=== PATIENT | female | born 1955 | race Caucasian/White ===

== ENCOUNTER 2019-10-23 10:21 | Inpatient (IN) ==
[2019-10-23] MEDS ORDERED: SODIUM CHLORIDE 0.9% 1,000 ML IV STA (10:34)
[2019-10-23 11:26] LABS: Apearance,Urine CLEAR (Clear); Bacteria,Urine Occasional /HPF (Few); Basophils % 0.4 % (0.0-0.8); Bilirubin,Urine Negative (Negative); Blood, Urine Negative (Negative); Eosinophils % 0.4 % (0.00-10.9); Glucose,Urine (UA) >=500 mg/dL (Negative); Hyaline Casts,Urine 5 /LPF (0-3); Immature Granulocytes % 0.6 %; Immature Granulocytes Absolute 0.03 #; Ketones,Urine Negative (Negative); Lymphocytes # 0.4 10*3/uL (1.4-4.0); Lymphocytes % 8.3 % (21.3-54.2); Mean Corpuscular HGB Conc 34.7 GM/DL (32-36); Mean Corpuscular Volume 103.4 FL (87-102); Mean Platelet Volume 12.1 FL (9.6-12.0); Monocytes % 5.7 % (1.7-12.7); Mucus,Urine Occasional /LPF (Occasional); Neutrophils % 84.6 % (38.7-73.9); Nitrite,Urine Negative (Negative); Protein,Urine Negative; RBC,Urine <1 /HPF (0-4); Red Blood Count 4.74 MC/CUMM (3.8-5.5); Red Cell Distribution Width 12.7 % (9.3-17.3); Urine Color Yellow (Yellow); Urine Specific Gravity 1.017 (1.001-1.035); WBC,Urine <1 /HPF (0-6); White Blood Count 5.1 T/CUMM (4-12)
[2019-10-23 11:28] LABS: Platelet Count 62 T/CUMM (130-400)
[2019-10-23 11:37] LABS: INR 1.1; PT Patient Result 11.4 SECS (9.6-12.2)
[2019-10-23 11:39] LABS: Barbiturates Screen,Urine Negative (Negative); Benzodiazepines Screen,Urine Negative (Negative); Cannabinoid Screen,Urine Negative (Negative); Opiate Screen,Urine Positive (Negative); Phencyclidine Screen,Urine Negative (Negative)
[2019-10-23 11:40] LABS: Alanine Aminotransferase 29 U/L (13-56); Albumin 3.5 G/DL (3.4-5.0); Alkaline Phosphatase 130 U/L (45-117); Aspartate Amino Transferase 48 U/L (0-37); Blood Urea Nitrogen 9 MG/DL (7-18); Calcium 9.5 MG/DL (8.5-10.1); Estimated Glom Filtration Rate 81 ML/MIN; Glucose 234 MG/DL (74-106); Osmolality,Calculated 279.8 MOS/KG (273-304)
[2019-10-23 11:42] LABS: Platelet Estimate Decreased
[2019-10-23] MEDS ORDERED: POTASSIUM CHLORIDE 20 MEQ TABLET PO STA (11:55)
[2019-10-23] MEDS ORDERED: POTASSIUM BICARB EFFERVESCENT 25 MEQ TABLET PO ONE (12:37)
[2019-10-23] MEDS ORDERED: GLUCAGON 1 MG VIAL IM PRN (16:38)
[2019-10-23] MEDS ORDERED: DEXTROSE 10% 25 GM/250 ML BAG IV PRN (16:38)
[2019-10-23] MEDS ORDERED: ONDANSETRON 4 MG/2 ML VIAL IV PRN (17:24)
[2019-10-23] MEDS ORDERED: POTASSIUM CHLORIDE 20 MEQ TABLET PO PRN (17:25)
[2019-10-23] MEDS: ENOXAPARIN 40 MG/0.4 ML SYRINGE SUBCUT SCH (17:46)
[2019-10-23] MEDS: SODIUM CHLORIDE 0.9% 1,000 ML IV SCH (17:46)
[2019-10-23] MEDS: INSULIN LISPRO 100 UNIT/ML SUBCUT SCH (21:59)
[2019-10-24] MEDS: ACETAMINOPHEN/CODEINE 300-30 MG TABLET PO SCH ×4 (00:39→20:35)
[2019-10-24] MEDS: ALLOPURINOL 100 MG TABLET PO SCH ×2 (00:39→09:02)
[2019-10-24] MEDS: clonazePAM 0.5 MG TABLET PO SCH ×3 (00:39→20:35)
[2019-10-24] MEDS: SODIUM CHLORIDE 0.9% 1,000 ML IV SCH ×3 (03:33→20:37)
[2019-10-24] MEDS: ACETAMINOPHEN 325 MG TABLET PO PRN ×3 (05:00→22:56)
[2019-10-24 06:09] LABS: Albumin 2.9 G/DL (3.4-5.0); Bilirubin,Total 1.2 MG/DL (0.2-1.0); Calcium 8.7 MG/DL (8.5-10.1); Risk Ratio 4.59; Thyroid Stimulating Hormone 0.697 uIU/ml (0.358-3.74); Total Protein 7.4 G/DL (6.4-8.3); VLDL CHOLESTEROL 25.4 MG/DL
[2019-10-24 06:23] LABS: Basophils % 0.3 % (0.0-0.8); Eosinophils % 0.7 % (0.00-10.9); Hematocrit 36.4 VOL% (35.7-47.0); Immature Granulocytes % 0.3 %; Immature Granulocytes Absolute 0.01 #; Lymphocytes # 0.9 10*3/uL (1.4-4.0); Lymphocytes % 29.9 % (21.3-54.2); Mean Corpuscular HGB Conc 34.9 GM/DL (32-36); Mean Corpuscular Volume 102.2 FL (87-102); Mean Platelet Volume 11.4 FL (9.6-12.0); Monocytes % 9.9 % (1.7-12.7); Neutrophils % 58.9 % (38.7-73.9); Red Cell Distribution Width 12.7 % (9.3-17.3)
[2019-10-24 06:26] LABS: White Blood Count 2.9 T/CUMM (4-12)
[2019-10-24 06:27] LABS: Hemoglobin 12.7 GM/DL (12.0-16.0); Platelet Count 72 T/CUMM (130-400); Red Blood Count 3.56 MC/CUMM (3.8-5.5)
[2019-10-24 06:47] LABS: Hypochromasia 1+; Ovalocytes Slight; Platelet Estimate Decreased
[2019-10-24] MEDS: NICOTINE 21 MG/24 HR PATCH TRANSDERM PRN (09:02)
[2019-10-24] MEDS: PANTOPRAZOLE 40 MG TABLET PO SCH (09:02)
[2019-10-24] MEDS: INSULIN LISPRO 100 UNIT/ML SUBCUT SCH ×4 (09:19→20:36)
[2019-10-24] MEDS ORDERED: MAGNESIUM SULF RIDER 2 GM in PREMIX 1 EACH IV ONE (10:00)
[2019-10-24] MEDS: LACTULOSE 20 GM/30 ML UDCUP PO SCH ×4 (10:57→22:53)
[2019-10-24] MEDS: diphenhydrAMINE CAP 25 MG CAPSULE PO PRN ×2 (16:55→22:56)
[2019-10-24] MEDS: ENOXAPARIN 40 MG/0.4 ML SYRINGE SUBCUT SCH (20:37)
[2019-10-24] MEDS ORDERED: ALBUTEROL/IPRATROPIUM 3 ML NEB RESP TX PRN (23:39)
[2019-10-25] MEDS ORDERED: IBUPROFEN 600 MG TABLET PO PRN (01:06)
[2019-10-25 06:21] LABS: Basophils % 1.4 % (0.0-0.8); Eosinophils % 0.9 % (0.00-10.9); Hematocrit 37.4 VOL% (35.7-47.0); Lymphocytes # 0.4 10*3/uL (1.4-4.0); Lymphocytes % 18.9 % (21.3-54.2); Mean Corpuscular HGB Conc 34.8 GM/DL (32-36); Mean Corpuscular Volume 101.9 FL (87-102); Mean Platelet Volume 11.8 FL (9.6-12.0); Monocytes % 13.7 % (1.7-12.7); Neutrophils % 65.1 % (38.7-73.9); Red Blood Count 3.67 MC/CUMM (3.8-5.5); Red Cell Distribution Width 12.8 % (9.3-17.3); White Blood Count 2.1 T/CUMM (4-12)
[2019-10-25 06:25] LABS: Platelet Count 68 T/CUMM (130-400)
[2019-10-25] MEDS: LACTULOSE 20 GM/30 ML UDCUP PO SCH ×2 (06:33→15:04)
[2019-10-25] MEDS: ACETAMINOPHEN 325 MG TABLET PO PRN (06:45)
[2019-10-25 06:49] LABS: Platelet Estimate Decreased
[2019-10-25 06:52] LABS: Albumin 3.2 G/DL (3.4-5.0); Bilirubin,Total 1.1 MG/DL (0.2-1.0); Calcium 8.8 MG/DL (8.5-10.1); Osmolality,Calculated 275.8 MOS/KG (273-304)
[2019-10-25] MEDS: diphenhydrAMINE CAP 25 MG CAPSULE PO PRN (08:43)
[2019-10-25] MEDS: ACETAMINOPHEN/CODEINE 300-30 MG TABLET PO SCH ×2 (08:43→15:04)
[2019-10-25] MEDS: PANTOPRAZOLE 40 MG TABLET PO SCH (08:43)
[2019-10-25] MEDS: NICOTINE 21 MG/24 HR PATCH TRANSDERM PRN (08:44)
[2019-10-25] MEDS: ALLOPURINOL 100 MG TABLET PO SCH (08:44)
[2019-10-25] MEDS: clonazePAM 0.5 MG TABLET PO SCH (08:44)
[2019-10-25] MEDS: INSULIN LISPRO 100 UNIT/ML SUBCUT SCH ×2 (08:44→12:09)
[2019-10-25] MEDS ORDERED: diphenhydrAMINE CAP 25 MG CAPSULE PO PRN (11:39)
[2019-10-25 12:39] VITALS: BP 143/79
[2019-10-25 20:41] LABS: % CD4 (T Cells) 20 % (32-64); % CD8 (T Cells) 43 % (8-40); 4/8 Ratio 0.5 (>=0.9)
== END 2019-10-25 15:06 | DRG 442 ==
LOC: EDBD → EDUNIT# → N.EDINP 10:21 → N.ED 10:21 → N.EDINP 15:04 → N.5E 15:27
PROVIDERS: ADMIT Internal Medicine; ATTEND Internal Medicine

== ENCOUNTER 2019-12-12 11:48 | Observation (INO) ==
[2019-12-12] MEDS ORDERED: ONDANSETRON 4 MG/2 ML VIAL IV STA (12:20)
[2019-12-12] MEDS ORDERED: SODIUM CHLORIDE 0.9% 1,000 ML IV STA (12:20)
[2019-12-12] MEDS ORDERED: DILTIAZEM 50 MG/10 ML VIAL IV STA (12:38)
[2019-12-12] MEDS ORDERED: dilTIAZem Drip 125 MG/125 ML PREMIX IV SCH (13:00)
[2019-12-12 13:19] LABS: Basophils % 0.7 % (0.0-0.8); Eosinophils % 0.3 % (0.00-10.9); Hematocrit 43.4 VOL% (35.7-47.0); Hemoglobin 14.8 GM/DL (12.0-16.0); Immature Granulocytes % 0.3 %; Immature Granulocytes Absolute 0.01 #; Lymphocytes # 0.6 10*3/uL (1.4-4.0); Lymphocytes % 18.3 % (21.3-54.2); Mean Corpuscular HGB Conc 34.1 GM/DL (32-36); Mean Corpuscular Volume 102.6 FL (87-102); Mean Platelet Volume 11.9 FL (9.6-12.0); Monocytes % 7.7 % (1.7-12.7); Neutrophils % 72.7 % (38.7-73.9); Platelet Count 80 T/CUMM (130-400); Red Blood Count 4.23 MC/CUMM (3.8-5.5); Red Cell Distribution Width 13.2 % (9.3-17.3)
[2019-12-12 13:24] LABS: Apearance,Urine CLEAR (Clear); Bilirubin,Urine Negative (Negative); Blood, Urine Negative (Negative); Glucose,Urine (UA) 150 mg/dL (Negative); Hyaline Casts,Urine 1 /LPF (0-3); Ketones,Urine Negative (Negative); Mucus,Urine Occasional /LPF (Occasional); Nitrite,Urine Negative (Negative); Protein,Urine Negative; RBC,Urine 2 /HPF (0-4); Urine Color Yellow (Yellow); Urine Specific Gravity 1.011 (1.001-1.035); WBC,Urine 1 /HPF (0-6)
[2019-12-12 13:30] LABS: INR 1.1; PT Patient Result 11.8 SECS (9.6-12.2); Partial Thromboplastin Time 28.3 SECS (20.8-36.0)
[2019-12-12 13:48] LABS: Albumin 3.3 G/DL (3.4-5.0); Bilirubin,Total 0.7 MG/DL (0.2-1.0); Calcium 9.1 MG/DL (8.5-10.1); Osmolality,Calculated 276.1 MOS/KG (273-304)
[2019-12-12] MEDS ORDERED: ACETAMINOPHEN 325 MG TABLET PO PRN (15:29)
[2019-12-12] MEDS ORDERED: ONDANSETRON 4 MG/2 ML VIAL IV PRN (15:29)
[2019-12-12] MEDS ORDERED: PROMETHAZINE 25 MG/1 ML VIAL IM PRN (15:29)
[2019-12-12] MEDS ORDERED: PHENYLEPH/MINERAL OIL/PETROLAT 57 GM TUBE TOP PRN (15:51)
[2019-12-12] MEDS ORDERED: IBUPROFEN 800 MG TABLET PO PRN (15:51)
[2019-12-12] MEDS ORDERED: ALBUTEROL 2.5 MG/3 ML NEB RESP TX PRN (15:51)
[2019-12-12] MEDS ORDERED: ONDANSETRON 4 MG TABLET PO PRN (15:51)
[2019-12-12] MEDS ORDERED: traMADol 50 MG TABLET PO PRN (15:51)
[2019-12-12] MEDS ORDERED: DEXTROSE 50% 25 GM/50 ML VIAL IV PRN (15:52)
[2019-12-12] MEDS ORDERED: GLUCAGON 1 MG VIAL IM PRN (15:52)
[2019-12-12] MEDS ORDERED: METOPROLOL TARTRATE 50 MG TABLET PO STA (15:53)
[2019-12-12] MEDS ORDERED: INSULIN GLARGINE 100 UNIT/ML SUBCUT SCH (16:00)
[2019-12-12] MEDS ORDERED: DILTIAZEM 60 MG TABLET PO SCH (17:00)
[2019-12-12] MEDS ORDERED: POTASSIUM CHLORIDE 20 MEQ TABLET PO ONE (18:00)
[2019-12-12] MEDS: VENLAFAXINE 37.5 MG TABLET PO SCH (18:29)
[2019-12-12] MEDS: APIXABAN 5 MG TABLET PO SCH ×2 (18:29→21:46)
[2019-12-12] MEDS: DILTIAZEM 30 MG TABLET PO SCH ×2 (18:29→22:39)
[2019-12-12] MEDS: PANTOPRAZOLE 40 MG TABLET PO SCH (18:29)
[2019-12-12] MEDS: INSULIN LISPRO 100 UNIT/ML SUBCUT SCH (18:30)
[2019-12-12] MEDS: clonazePAM 0.5 MG TABLET PO SCH (18:30)
[2019-12-12] MEDS: INSULIN REGULAR 100 UNIT/ML SUBCUT SCH ×2 (18:33→21:43)
[2019-12-12] MEDS: SODIUM CHLORIDE 0.9% 1,000 ML IV SCH (18:38)
[2019-12-12 19:50] LABS: Macrocytosis 2+; Platelet Estimate Decreased
[2019-12-12] MEDS ORDERED: ABACAVIR DOLUTEGRAVIR LAMIVUD PO SCH (21:00)
[2019-12-12] MEDS ORDERED: CETIRIZINE 10 MG TABLET PO SCH (21:00)
[2019-12-12] MEDS ORDERED: GABAPENTIN 300 MG CAPSULE PO SCH (21:00)
[2019-12-12] MEDS: AMOXICILLIN/CLAV 875 MG TABLET PO SCH (21:45)
[2019-12-12] MEDS: METOPROLOL TARTRATE 50 MG TABLET PO SCH (21:46)
[2019-12-12] MEDS: allopurinoL 100 MG TABLET PO SCH (21:46)
[2019-12-12] MEDS ORDERED: ACETAMINOPHEN/CODEINE 300-30 MG TABLET PO SCH (22:00)
[2019-12-13 05:00] LABS: Basophils % 0.7 % (0.0-0.8); Eosinophils % 1.4 % (0.00-10.9); Hematocrit 35.6 VOL% (35.7-47.0); Immature Granulocytes % 0.4 %; Immature Granulocytes Absolute 0.01 #; Lymphocytes # 0.7 10*3/uL (1.4-4.0); Lymphocytes % 26.3 % (21.3-54.2); Mean Corpuscular HGB Conc 33.7 GM/DL (32-36); Mean Corpuscular Volume 103.5 FL (87-102); Mean Platelet Volume 12.5 FL (9.6-12.0); Monocytes % 8.6 % (1.7-12.7); Neutrophils % 62.6 % (38.7-73.9); Platelet Count 79 T/CUMM (130-400); Red Blood Count 3.44 MC/CUMM (3.8-5.5); Red Cell Distribution Width 13.3 % (9.3-17.3); White Blood Count 2.8 T/CUMM (4-12)
[2019-12-13 05:29] LABS: Albumin 2.7 G/DL (3.4-5.0); Bilirubin,Total 0.7 MG/DL (0.2-1.0); Calcium 8.3 MG/DL (8.5-10.1); Osmolality,Calculated 283.8 MOS/KG (273-304); Risk Ratio 3.64; Total Protein 7.4 G/DL (6.4-8.3); VLDL CHOLESTEROL 22.8 MG/DL
[2019-12-13 05:43] LABS: Hypochromasia Slight; Macrocytosis 1+
[2019-12-13 05:44] LABS: Platelet Estimate Decreased
[2019-12-13] MEDS: clonazePAM 0.5 MG TABLET PO SCH (08:42)
[2019-12-13] MEDS: PANTOPRAZOLE 40 MG TABLET PO SCH (08:43)
[2019-12-13] MEDS: VENLAFAXINE 37.5 MG TABLET PO SCH (08:43)
[2019-12-13] MEDS: METOPROLOL TARTRATE 50 MG TABLET PO SCH (08:43)
[2019-12-13] MEDS: AMOXICILLIN/CLAV 875 MG TABLET PO SCH (08:43)
[2019-12-13] MEDS: allopurinoL 100 MG TABLET PO SCH (08:43)
[2019-12-13] MEDS: APIXABAN 5 MG TABLET PO SCH ×2 (08:44→11:52)
[2019-12-13] MEDS: INSULIN LISPRO 100 UNIT/ML SUBCUT SCH ×3 (08:44→16:59)
[2019-12-13] MEDS: INSULIN REGULAR 100 UNIT/ML SUBCUT SCH ×3 (08:48→16:59)
[2019-12-13] MEDS: SODIUM CHLORIDE 0.9% 1,000 ML IV SCH ×3 (08:52→16:58)
[2019-12-13] MEDS ORDERED: MULTIVITAMIN (CENTRUM) TABLET PO SCH (09:00)
[2019-12-13] MEDS ORDERED: SULFAMETHOX/TRIMETHOPRIM 400-80 MG TABLET PO SCH (09:00)
[2019-12-13] MEDS ORDERED: POTASSIUM CHLORIDE 20 MEQ TABLET PO SCH (09:00)
[2019-12-13] MEDS ORDERED: hydroCHLOROthiazide 25 MG TABLET PO SCH (09:00)
[2019-12-13] MEDS ORDERED: DILTIAZEM 60 MG TABLET PO SCH (09:00)
[2019-12-13] MEDS ORDERED: LACTULOSE 20 GM/30 ML UDCUP PO SCH (09:00)
[2019-12-13] MEDS ORDERED: CHOLECALCIFEROL 1,000 UNIT TABLET PO SCH (09:00)
[2019-12-13] MEDS ORDERED: INSULIN GLARGINE 100 UNIT/ML SUBCUT SCH (09:00)
[2019-12-13] MEDS ORDERED: DILTIAZEM CD 120 MG CAPSULE PO SCH (09:00)
[2019-12-13] MEDS ORDERED: FLUCONAZOLE 200 MG TABLET PO ONE (10:20)
[2019-12-13 12:19] VITALS: BP 115/68
[2019-12-13] MEDS ORDERED: NEBIVOLOL 5 MG TABLET PO SCH (21:00)
== END 2019-12-13 17:15 | disposition home or self-care (01) ==
LOC: EDUNIT# → EDBD → N.ED 11:48 → N.EDINP 11:48 → N.TELES 17:20
PROVIDERS: ADMIT Internal Medicine; ATTEND Internal Medicine

== ENCOUNTER 2020-03-20 18:04 | Inpatient (IN) ==
[2020-03-20] MEDS ORDERED: PANTOPRAZOLE 40 MG VIAL IV STA ×3 (18:32→21:13)
[2020-03-20] MEDS ORDERED: SODIUM CHLORIDE 0.9% 500 ML IV STA ×3 (18:32→21:13)
[2020-03-20 18:56] LABS: Eosinophils % 0.8 % (0.00-10.9); Immature Granulocytes % 0.3 %; Immature Granulocytes Absolute 0.01 #; Lymphocytes # 0.8 10*3/uL (1.4-4.0); Mean Corpuscular HGB Conc 29.5 GM/DL (32-36); Mean Corpuscular Volume 88.6 FL (87-102); Mean Platelet Volume 13.5 FL (9.6-12.0); NRBC # 0.03 10*3/uL; Neutrophils % 63.9 % (38.7-73.9); Platelet Count 73 T/CUMM (130-400); Red Blood Count 1.49 MC/CUMM (3.8-5.5); Red Cell Distribution Width 18.9 % (9.3-17.3); White Blood Count 3.7 T/CUMM (4-12)
[2020-03-20 19:03] LABS: Hematocrit 13.2 VOL% (35.7-47.0); Hemoglobin 3.9 GM/DL (12.0-16.0)
[2020-03-20 19:14] LABS: Apearance,Urine Slightly Hazy (Clear); Bacteria,Urine Few /HPF (Few); Bilirubin,Urine Negative (Negative); Blood, Urine Negative (Negative); Glucose,Urine (UA) Negative (Negative); Ketones,Urine Negative (Negative); Nitrite,Urine Negative (Negative); Protein,Urine Negative; RBC,Urine <1 /HPF (0-4); Urine Color Yellow (Yellow); Urine Specific Gravity 1.014 (1.001-1.035); WBC,Urine 1 /HPF (0-6)
[2020-03-20 19:22] LABS: Alanine Aminotransferase 23 U/L (13-56); Albumin 2.8 G/DL (3.4-5.0); Alkaline Phosphatase 88 U/L (45-117); Aspartate Amino Transferase 38 U/L (0-37); Blood Urea Nitrogen 30 MG/DL (7-18); Calcium 8.9 MG/DL (8.5-10.1); Estimated Glom Filtration Rate 51 ML/MIN; Ferritin 8.4 ng/ml (8-252); Glucose 103 MG/DL (74-106); Osmolality,Calculated 265.8 MOS/KG (273-304)
[2020-03-20 19:22] LABS: Barbiturates Screen,Urine Negative (Negative); Benzodiazepines Screen,Urine Negative (Negative); Cannabinoid Screen,Urine Negative (Negative); Opiate Screen,Urine Positive (Negative); Phencyclidine Screen,Urine Negative (Negative)
[2020-03-20 19:24] LABS: Troponin I 0.128 NG/ML (0.00-0.045)
[2020-03-20 19:27] LABS: INR 1.3; PT Patient Result 14.2 SECS (9.8-11.9)
[2020-03-20] MEDS ORDERED: SODIUM CHLORIDE 0.9% 1,000 ML IV PRN (20:36)
[2020-03-20] MEDS ORDERED: cefTRIAXone 1,000 MG in SODIUM CHLORIDE 0.9% 100 ML IV STA (21:13)
[2020-03-20] MEDS ORDERED: OCTREOTIDE 100 MCG/ML SYRINGE IV STA (21:13)
[2020-03-20] MEDS ORDERED: PROMETHAZINE 25 MG/1 ML VIAL IM PRN (21:13)
[2020-03-20] MEDS ORDERED: ONDANSETRON 4 MG/2 ML VIAL IV PRN (21:13)
[2020-03-20] MEDS ORDERED: GLUCAGON 1 MG VIAL IM PRN (21:13)
[2020-03-20] MEDS ORDERED: DEXTROSE 10% 250 ML BAG IV PRN (21:18)
[2020-03-20] MEDS ORDERED: PANTOPRAZOLE 40 MG VIAL IV SCH (21:30)
[2020-03-20] MEDS: LACTATED RINGERS 1,000 ML IV SCH (22:59)
[2020-03-20] MEDS: OCTREOTIDE 500 MCG in SODIUM CHLORIDE 0.9% 100 ML IV SCH (23:14)
[2020-03-20] MEDS: ALBUTEROL 2.5 MG/3 ML NEB RESP TX PRN (23:20)
[2020-03-20] MEDS: POTASSIUM CHLORIDE RIDER 10 MEQ in PREMIX 1 EACH IV SCH (23:31)
[2020-03-20] MEDS: INSULIN REGULAR 100 UNIT/ML SUBCUT SCH (23:41)
[2020-03-21] MEDS ORDERED: POTASSIUM CHLORIDE IV ONE
[2020-03-21] MEDS ORDERED: SODIUM CHLORIDE 0.9% IV ONE
[2020-03-21] MEDS ORDERED: FUROSEMIDE 20 MG/2 ML VIAL IV ONE (01:09)
[2020-03-21] MEDS: INSULIN REGULAR 100 UNIT/ML SUBCUT SCH ×4 (06:05→23:50)
[2020-03-21] MEDS: LACTATED RINGERS 1,000 ML IV SCH ×3 (06:05→21:32)
[2020-03-21 09:14] LABS: INR 1.3; PT Patient Result 13.3 SECS (9.8-11.9); Partial Thromboplastin Time 27.5 SECS (23.9-33.8)
[2020-03-21 09:21] LABS: Basophils % 0.3 % (0.0-0.8); Eosinophils % 0.3 % (0.00-10.9); Hematocrit 25.3 VOL% (35.7-47.0); Immature Granulocytes % 0.6 %; Immature Granulocytes Absolute 0.02 #; Lymphocytes # 0.5 10*3/uL (1.4-4.0); Lymphocytes % 15.9 % (21.3-54.2); Mean Corpuscular HGB Conc 31.6 GM/DL (32-36); Mean Corpuscular Volume 89.4 FL (87-102); Mean Platelet Volume 13.1 FL (9.6-12.0); Monocytes % 10.2 % (1.7-12.7); NRBC # 0.04 10*3/uL; Neutrophils % 72.7 % (38.7-73.9); Red Cell Distribution Width 17.2 % (9.3-17.3); White Blood Count 3.1 T/CUMM (4-12)
[2020-03-21 09:23] LABS: Red Blood Count 2.83 MC/CUMM (3.8-5.5)
[2020-03-21 09:24] LABS: Platelet Count 52 T/CUMM (130-400)
[2020-03-21] MEDS: PANTOPRAZOLE 40 MG VIAL IV SCH ×2 (09:38→20:10)
[2020-03-21] MEDS: OCTREOTIDE 500 MCG in SODIUM CHLORIDE 0.9% 100 ML IV SCH ×2 (09:38→19:10)
[2020-03-21 09:39] LABS: Albumin 2.7 G/DL (3.4-5.0); Calcium 8.1 MG/DL (8.5-10.1); Osmolality,Calculated 275.2 MOS/KG (273-304); Total Protein 6.9 G/DL (6.4-8.3)
[2020-03-21 09:41] LABS: Hypochromasia 1+
[2020-03-21 09:42] LABS: Anisocytosis 1+; Microcytosis 1+; Ovalocytes Slight; Platelet Estimate Decreased; Polychromasia Slight
[2020-03-21] MEDS ORDERED: ABACAVIR DOLUTEGRAVIR LAMIVUD PO SCH (21:00)
[2020-03-22] MEDS: OCTREOTIDE 500 MCG in SODIUM CHLORIDE 0.9% 100 ML IV SCH (05:10)
[2020-03-22] MEDS: INSULIN REGULAR 100 UNIT/ML SUBCUT SCH ×4 (05:49→23:42)
[2020-03-22] MEDS: LACTATED RINGERS 1,000 ML IV SCH ×5 (05:49→21:48)
[2020-03-22] MEDS ORDERED: LACTATED RINGERS 1,000 ML IV SCH (08:00)
[2020-03-22] MEDS: PANTOPRAZOLE 40 MG VIAL IV SCH ×2 (08:30→20:48)
[2020-03-22 08:48] LABS: Basophils % 0.7 % (0.0-0.8); Hematocrit 28.8 VOL% (35.7-47.0); Hemoglobin 8.8 GM/DL (12.0-16.0); Immature Granulocytes % 0.3 %; Immature Granulocytes Absolute 0.01 #; Lymphocytes # 0.6 10*3/uL (1.4-4.0); Lymphocytes % 18.3 % (21.3-54.2); Mean Corpuscular HGB Conc 30.6 GM/DL (32-36); Mean Platelet Volume 12.5 FL (9.6-12.0); NRBC # 0.04 10*3/uL; Neutrophils % 68.7 % (38.7-73.9); Red Cell Distribution Width 17.8 % (9.3-17.3)
[2020-03-22 08:51] LABS: Platelet Count 60 T/CUMM (130-400)
[2020-03-22] MEDS ORDERED: propofoL 200 MG/20 ML VIAL IV ONE (09:00)
[2020-03-22] MEDS ORDERED: LIDOCAINE 2% 5 ML VIAL ONE (09:00)
[2020-03-22 09:17] LABS: Albumin 2.8 G/DL (3.4-5.0); Bilirubin,Total 1.4 MG/DL (0.2-1.0); Calcium 7.9 MG/DL (8.5-10.1); Total Protein 7.1 G/DL (6.4-8.3)
[2020-03-22 09:46] LABS: Hypochromasia 2+; Platelet Estimate Decreased
[2020-03-22 09:47] LABS: Microcytosis Slight; Ovalocytes Slight
[2020-03-22] MEDS: ALBUTEROL 2.5 MG/3 ML NEB RESP TX PRN (10:16)
[2020-03-22] MEDS: POTASSIUM CHLORIDE RIDER 10 MEQ in PREMIX 1 EACH IV PRN ×4 (17:31→21:48)
[2020-03-23 01:07] LABS: Basophils % 0.3 % (0.0-0.8); Hematocrit 31.4 VOL% (35.7-47.0); Hemoglobin 9.5 GM/DL (12.0-16.0); Immature Granulocytes % 0.3 %; Immature Granulocytes Absolute 0.01 #; Lymphocytes # 0.5 10*3/uL (1.4-4.0); Lymphocytes % 16.8 % (21.3-54.2); Mean Corpuscular HGB Conc 30.3 GM/DL (32-36); Mean Corpuscular Volume 91.8 FL (87-102); Monocytes % 9.2 % (1.7-12.7); NRBC # 0.03 10*3/uL; Neutrophils % 72.4 % (38.7-73.9); Red Blood Count 3.42 MC/CUMM (3.8-5.5); Red Cell Distribution Width 17.8 % (9.3-17.3); White Blood Count 2.9 T/CUMM (4-12)
[2020-03-23 01:12] LABS: Platelet Count 58 T/CUMM (130-400)
[2020-03-23 02:11] LABS: Hypochromasia 2+; Platelet Estimate Decreased; Polychromasia Few
[2020-03-23] MEDS: LACTATED RINGERS 1,000 ML IV SCH (06:31)
[2020-03-23] MEDS: INSULIN REGULAR 100 UNIT/ML SUBCUT SCH ×3 (06:32→17:16)
[2020-03-23 06:35] LABS: Basophils % 0.3 % (0.0-0.8); Eosinophils % 0.7 % (0.00-10.9); Hematocrit 30.2 VOL% (35.7-47.0); Hemoglobin 9.2 GM/DL (12.0-16.0); Immature Granulocytes Absolute 0.03 #; Lymphocytes # 0.6 10*3/uL (1.4-4.0); Lymphocytes % 19.3 % (21.3-54.2); Mean Corpuscular HGB Conc 30.5 GM/DL (32-36); Mean Corpuscular Volume 91.2 FL (87-102); Mean Platelet Volume 13.3 FL (9.6-12.0); Monocytes % 9.5 % (1.7-12.7); NRBC # 0.02 10*3/uL; Neutrophils % 69.2 % (38.7-73.9); Red Blood Count 3.31 MC/CUMM (3.8-5.5); Red Cell Distribution Width 17.8 % (9.3-17.3)
[2020-03-23 06:47] LABS: Platelet Count 53 T/CUMM (130-400)
[2020-03-23 07:00] LABS: Hypochromasia 1+; Microcytosis 1+
[2020-03-23 07:01] LABS: Anisocytosis 1+; Ovalocytes Slight; Tear Drop Cells Slight
[2020-03-23 07:02] LABS: Platelet Estimate Decreased; Polychromasia Slight
[2020-03-23 07:04] LABS: Calcium 7.9 MG/DL (8.5-10.1); Osmolality,Calculated 281.4 MOS/KG (273-304)
[2020-03-23] MEDS ORDERED: POTASSIUM CHLORIDE 20 MEQ TABLET PO SCH (09:00)
[2020-03-23] MEDS: PANTOPRAZOLE 40 MG TABLET PO SCH (09:31)
[2020-03-23] MEDS: clonazePAM 0.5 MG TABLET PO SCH ×2 (11:40→17:15)
[2020-03-23] MEDS: SULFAMETHOX/TRIMETHOPRIM 800-160 MG TABLET PO SCH (11:40)
[2020-03-23] MEDS: DILTIAZEM CD 120 MG CAPSULE PO SCH (11:40)
[2020-03-23] MEDS: GABAPENTIN 300 MG CAPSULE PO SCH (21:01)
[2020-03-24] MEDS: INSULIN REGULAR 100 UNIT/ML SUBCUT SCH ×4 (00:10→17:02)
[2020-03-24 05:33] LABS: Basophils % 0.8 % (0.0-0.8); Eosinophils % 1.1 % (0.00-10.9); Hematocrit 34.8 VOL% (35.7-47.0); Hemoglobin 10.5 GM/DL (12.0-16.0); Immature Granulocytes % 0.4 %; Immature Granulocytes Absolute 0.01 #; Lymphocytes # 0.6 10*3/uL (1.4-4.0); Lymphocytes % 21.6 % (21.3-54.2); Mean Corpuscular HGB Conc 30.2 GM/DL (32-36); Mean Corpuscular Volume 92.3 FL (87-102); Mean Platelet Volume 11.6 FL (9.6-12.0); Monocytes % 12.9 % (1.7-12.7); Neutrophils % 63.2 % (38.7-73.9); Red Blood Count 3.77 MC/CUMM (3.8-5.5); Red Cell Distribution Width 18.4 % (9.3-17.3); White Blood Count 2.6 T/CUMM (4-12)
[2020-03-24 05:43] LABS: Osmolality,Calculated 279.5 MOS/KG (273-304)
[2020-03-24 05:59] LABS: Platelet Count 58 T/CUMM (130-400)
[2020-03-24 07:30] LABS: Hypochromasia 1+
[2020-03-24 07:31] LABS: Anisocytosis 1+; Microcytosis 1+; Ovalocytes Slight; Platelet Estimate Decreased; Tear Drop Cells Slight
[2020-03-24] MEDS: SULFAMETHOX/TRIMETHOPRIM 800-160 MG TABLET PO SCH (09:01)
[2020-03-24] MEDS: clonazePAM 0.5 MG TABLET PO SCH ×2 (09:02→17:02)
[2020-03-24] MEDS: DILTIAZEM CD 120 MG CAPSULE PO SCH (09:02)
[2020-03-24] MEDS: PANTOPRAZOLE 40 MG TABLET PO SCH (09:02)
[2020-03-24] MEDS ORDERED: MAGNESIUM SULF RIDER 4 GM in PREMIX 1 EACH IV PRN (09:43)
[2020-03-24] MEDS ORDERED: BISACODYL 5 MG TABLET PO ONE (12:00)
[2020-03-24] MEDS: MAGNESIUM SULF RIDER 2 GM in PREMIX 1 EACH IV PRN (17:02)
[2020-03-24] MEDS ORDERED: POLYETHYLENE GLYCOL POWDER 255 GM BOTTLE PO ONE (18:00)
[2020-03-24] MEDS: GABAPENTIN 300 MG CAPSULE PO SCH (21:21)
[2020-03-25] MEDS: INSULIN REGULAR 100 UNIT/ML SUBCUT SCH ×4 (00:34→17:40)
[2020-03-25] MEDS: ALBUTEROL 2.5 MG/3 ML NEB RESP TX PRN ×2 (05:35→20:52)
[2020-03-25 07:24] LABS: Basophils % 0.8 % (0.0-0.8); Eosinophils % 1.7 % (0.00-10.9); Hematocrit 32.2 VOL% (35.7-47.0); Hemoglobin 9.9 GM/DL (12.0-16.0); Immature Granulocytes % 0.4 %; Immature Granulocytes Absolute 0.01 #; Lymphocytes # 0.6 10*3/uL (1.4-4.0); Lymphocytes % 23.6 % (21.3-54.2); Mean Corpuscular HGB Conc 30.7 GM/DL (32-36); Mean Corpuscular Volume 92.3 FL (87-102); Mean Platelet Volume 13.4 FL (9.6-12.0); Monocytes % 13.2 % (1.7-12.7); Neutrophils % 60.3 % (38.7-73.9); Red Blood Count 3.49 MC/CUMM (3.8-5.5); Red Cell Distribution Width 18.8 % (9.3-17.3); White Blood Count 2.4 T/CUMM (4-12)
[2020-03-25 07:27] LABS: Platelet Count 59 T/CUMM (130-400)
[2020-03-25 07:42] LABS: Hypochromasia 1+; Platelet Estimate Decreased
[2020-03-25] MEDS: DILTIAZEM CD 120 MG CAPSULE PO SCH (09:07)
[2020-03-25] MEDS: PANTOPRAZOLE 40 MG TABLET PO SCH (09:07)
[2020-03-25] MEDS: clonazePAM 0.5 MG TABLET PO SCH ×2 (09:07→17:40)
[2020-03-25] MEDS: SULFAMETHOX/TRIMETHOPRIM 800-160 MG TABLET PO SCH (09:07)
[2020-03-25] MEDS: traMADol 50 MG TABLET PO PRN ×2 (09:11→21:38)
[2020-03-25] MEDS: GABAPENTIN 300 MG CAPSULE PO SCH (21:38)
[2020-03-25] MEDS ORDERED: FUROSEMIDE 40 MG/4 ML VIAL IV ONE (22:55)
[2020-03-26] MEDS: INSULIN REGULAR 100 UNIT/ML SUBCUT SCH ×3 (01:28→12:12)
[2020-03-26] MEDS: traMADol 50 MG TABLET PO PRN (06:48)
[2020-03-26 08:50] LABS: Calcium 7.9 MG/DL (8.5-10.1); Osmolality,Calculated 272.2 MOS/KG (273-304)
[2020-03-26] MEDS: PANTOPRAZOLE 40 MG TABLET PO SCH (09:45)
[2020-03-26] MEDS: SULFAMETHOX/TRIMETHOPRIM 800-160 MG TABLET PO SCH (09:45)
[2020-03-26] MEDS: clonazePAM 0.5 MG TABLET PO SCH (09:45)
[2020-03-26] MEDS: DILTIAZEM CD 120 MG CAPSULE PO SCH (09:46)
[2020-03-26] MEDS: MAGNESIUM SULF RIDER 2 GM in PREMIX 1 EACH IV PRN (09:46)
[2020-03-26] MEDS: ALBUTEROL 2.5 MG/3 ML NEB RESP TX PRN ×2 (10:10→14:50)
[2020-03-26 11:22] LABS: Basophils % 0.7 % (0.0-0.8); Eosinophils % 1.5 % (0.00-10.9); Hematocrit 36.9 VOL% (35.7-47.0); Hemoglobin 11.2 GM/DL (12.0-16.0); Immature Granulocytes % 0.7 %; Immature Granulocytes Absolute 0.02 #; Lymphocytes % 35.6 % (21.3-54.2); Mean Corpuscular HGB Conc 30.4 GM/DL (32-36); Mean Corpuscular Volume 92.9 FL (87-102); Mean Platelet Volume 12.5 FL (9.6-12.0); Neutrophils % 46.5 % (38.7-73.9); Red Blood Count 3.97 MC/CUMM (3.8-5.5); Red Cell Distribution Width 18.6 % (9.3-17.3); White Blood Count 2.7 T/CUMM (4-12)
[2020-03-26 11:23] LABS: Platelet Count 61 T/CUMM (130-400)
[2020-03-26 11:42] LABS: Anisocytosis 1+; Platelet Estimate Decreased
[2020-03-26 11:43] LABS: Macrocytosis Slight
[2020-03-26] MEDS ORDERED: MAGNESIUM OXIDE 400 MG TABLET PO ONE (11:47)
[2020-03-26 12:12] VITALS: BP 125/72
== END 2020-03-26 16:10 | DRG 432 ==
LOC: N.ED 18:04 → SUATTDRO 20:27 → N.EDINP 20:27 → N.ICU 22:03 → N.TELEN 03-23 10:58
PROVIDERS: ADMIT Internal Medicine; ATTEND Internal Medicine

== ENCOUNTER 2020-04-05 15:06 | Inpatient (IN) ==
[2020-04-05] MEDS ORDERED: ONDANSETRON 4 MG/2 ML VIAL IV STA (15:35)
[2020-04-05] MEDS ORDERED: PANTOPRAZOLE 40 MG TABLET PO STA (15:35)
[2020-04-05] MEDS ORDERED: SODIUM CHLORIDE 0.9% 1,000 ML IV STA (15:35)
[2020-04-05 16:46] LABS: Eosinophils % 0.8 % (0.00-10.9); Immature Granulocytes % 0.4 %; Immature Granulocytes Absolute 0.01 #; Lymphocytes # 0.8 10*3/uL (1.4-4.0); Lymphocytes % 29.9 % (21.3-54.2); Mean Corpuscular HGB Conc 29.3 GM/DL (32-36); Mean Corpuscular Volume 94.3 FL (87-102); Mean Platelet Volume 11.3 FL (9.6-12.0); Monocytes % 12.1 % (1.7-12.7); Neutrophils % 56.8 % (38.7-73.9); Platelet Count 140 T/CUMM (130-400); Red Blood Count 1.23 MC/CUMM (3.8-5.5); Red Cell Distribution Width 18.5 % (9.3-17.3); White Blood Count 2.6 T/CUMM (4-12)
[2020-04-05 16:51] LABS: Hematocrit 11.6 VOL% (35.7-47.0); Hemoglobin 3.4 GM/DL (12.0-16.0)
[2020-04-05 17:10] LABS: INR 1.2; PT Patient Result 12.8 SECS (9.8-11.9)
[2020-04-05 17:15] LABS: Alanine Aminotransferase 19 U/L (13-56); Albumin 2.5 G/DL (3.4-5.0); Alkaline Phosphatase 112 U/L (45-117); Amylase 26 U/L (25-115); Aspartate Amino Transferase 35 U/L (0-37); Bilirubin,Total < 0.39 MG/DL (0.2-1.0); Blood Urea Nitrogen 11 MG/DL (7-18); Calcium 8.5 MG/DL (8.5-10.1); Estimated Glom Filtration Rate 74 ML/MIN; Glucose 180 MG/DL (74-106); Osmolality,Calculated 278.7 MOS/KG (273-304); Total Protein 6.4 G/DL (6.4-8.3)
[2020-04-05] MEDS ORDERED: SODIUM CHLORIDE 0.9% 1,000 ML IV PRN (17:21)
[2020-04-05] MEDS ORDERED: PANTOPRAZOLE 40 MG VIAL IV ONE (17:55)
[2020-04-05] MEDS ORDERED: PANTOPRAZOLE 40 MG VIAL IV STA (17:56)
[2020-04-05] MEDS ORDERED: ALBUTEROL 2.5 MG/3 ML NEB RESP TX PRN (18:35)
[2020-04-05] MEDS ORDERED: GLUCAGON 1 MG VIAL IM PRN (18:35)
[2020-04-05] MEDS ORDERED: MAGNESIUM SULF RIDER 2 GM in PREMIX 1 EACH IV ONE (19:45)
[2020-04-05] MEDS: INSULIN LISPRO 100 UNIT/ML SUBCUT SCH ×2 (20:46→23:09)
[2020-04-05] MEDS: clonazePAM 0.5 MG TABLET PO SCH (20:55)
[2020-04-05] MEDS: ACETAMINOPHEN/CODEINE 300-30 MG TABLET PO PRN (20:55)
[2020-04-05] MEDS: allopurinoL 100 MG TABLET PO SCH (20:55)
[2020-04-05] MEDS: ABACAVIR DOLUTEGRAVIR LAMIVUD PO SCH (22:11)
[2020-04-05 23:41] LABS: Eosinophils % 1.6 % (0.00-10.9); Hematocrit 24.9 VOL% (35.7-47.0); Immature Granulocytes % 0.5 %; Immature Granulocytes Absolute 0.01 #; Lymphocytes # 0.7 10*3/uL (1.4-4.0); Lymphocytes % 34.7 % (21.3-54.2); Mean Corpuscular HGB Conc 30.1 GM/DL (32-36); Mean Corpuscular Volume 93.3 FL (87-102); Mean Platelet Volume 11.7 FL (9.6-12.0); Monocytes % 13.5 % (1.7-12.7); Neutrophils % 48.7 % (38.7-73.9); Platelet Count 116 T/CUMM (130-400); Red Blood Count 2.67 MC/CUMM (3.8-5.5); White Blood Count 1.9 T/CUMM (4-12)
[2020-04-05 23:51] LABS: Hemoglobin 7.5 GM/DL (12.0-16.0)
[2020-04-06 02:29] LABS: Anisocytosis 2+; Atypical Lymphocytes Few; Band Neutrophils 4 % (0-10); Eosinophils 2 % (0-10); Hypochromasia 2+; Lymphocytes 31 % (20-55); Macrocytosis 2+; Metamyelocytes 3 %; Platelet Estimate Decreased; Reactive Lymphocytes Few; Segmented Neutrophils 45 % (50-85); Total Cells Counted 100
[2020-04-06 03:59] LABS: Basophils % 1.5 % (0.0-0.8); Eosinophils % 1.5 % (0.00-10.9); Hematocrit 29.1 VOL% (35.7-47.0); Hemoglobin 8.9 GM/DL (12.0-16.0); Immature Granulocytes % 0.5 %; Immature Granulocytes Absolute 0.01 #; Lymphocytes # 0.8 10*3/uL (1.4-4.0); Lymphocytes % 39.4 % (21.3-54.2); Mean Corpuscular HGB Conc 30.6 GM/DL (32-36); Mean Corpuscular Volume 92.7 FL (87-102); Mean Platelet Volume 10.9 FL (9.6-12.0); Monocytes % 16.3 % (1.7-12.7); Neutrophils % 40.8 % (38.7-73.9); Red Blood Count 3.14 MC/CUMM (3.8-5.5); Red Cell Distribution Width 17.3 % (9.3-17.3)
[2020-04-06 04:04] LABS: Platelet Count 109 T/CUMM (130-400)
[2020-04-06 04:25] LABS: INR 1.1; PT Patient Result 12.2 SECS (9.8-11.9)
[2020-04-06 04:35] LABS: Calcium 8.5 MG/DL (8.5-10.1); Osmolality,Calculated 274.8 MOS/KG (273-304)
[2020-04-06 04:51] LABS: Band Neutrophils 1 % (0-10); Eosinophils 1 % (0-10); Lymphocytes 40 % (20-55); Segmented Neutrophils 43 % (50-85); Total Cells Counted 100
[2020-04-06 04:52] LABS: Anisocytosis 1+; Hypochromasia 2+; Macrocytosis 1+; Platelet Estimate Decreased
[2020-04-06] MEDS: INSULIN LISPRO 100 UNIT/ML SUBCUT SCH ×3 (05:42→17:22)
[2020-04-06] MEDS: LACTULOSE 20 GM/30 ML UDCUP PO SCH ×2 (08:23→17:44)
[2020-04-06] MEDS: INSULIN GLARGINE 100 UNIT/ML SUBCUT SCH ×2 (08:24→15:26)
[2020-04-06] MEDS: PANTOPRAZOLE 40 MG TABLET PO SCH (08:24)
[2020-04-06] MEDS: FAMOTIDINE 20 MG TABLET PO SCH ×2 (08:24→17:44)
[2020-04-06] MEDS: allopurinoL 100 MG TABLET PO SCH ×2 (08:25→21:11)
[2020-04-06] MEDS: ACETAMINOPHEN/CODEINE 300-30 MG TABLET PO PRN ×2 (12:22→21:12)
[2020-04-06] MEDS: ONDANSETRON 4 MG/2 ML VIAL IV PRN (15:52)
[2020-04-06] MEDS: clonazePAM 0.5 MG TABLET PO SCH (21:11)
[2020-04-06] MEDS: ABACAVIR DOLUTEGRAVIR LAMIVUD PO SCH (22:11)
[2020-04-07] MEDS: HYDROmorphone 2 MG/1 ML VIAL IV PRN ×3 (00:01→23:29)
[2020-04-07] MEDS: INSULIN LISPRO 100 UNIT/ML SUBCUT SCH ×4 (01:39→17:46)
[2020-04-07 04:59] LABS: Basophils % 0.9 % (0.0-0.8); Eosinophils % 1.3 % (0.00-10.9); Hematocrit 31.4 VOL% (35.7-47.0); Hemoglobin 10.1 GM/DL (12.0-16.0); Immature Granulocytes % 0.4 %; Immature Granulocytes Absolute 0.01 #; Lymphocytes # 0.7 10*3/uL (1.4-4.0); Lymphocytes % 30.7 % (21.3-54.2); Mean Corpuscular HGB Conc 32.2 GM/DL (32-36); Mean Corpuscular Volume 91.3 FL (87-102); Mean Platelet Volume 11.6 FL (9.6-12.0); Monocytes % 15.1 % (1.7-12.7); Neutrophils % 51.6 % (38.7-73.9); Platelet Count 106 T/CUMM (130-400); Red Blood Count 3.44 MC/CUMM (3.8-5.5); Red Cell Distribution Width 17.2 % (9.3-17.3); White Blood Count 2.3 T/CUMM (4-12)
[2020-04-07 05:28] LABS: Hypochromasia 2+; Microcytosis 2+; Platelet Estimate Decreased
[2020-04-07 05:29] LABS: Ovalocytes 1+; Polychromasia Few
[2020-04-07] MEDS: PANTOPRAZOLE 40 MG TABLET PO SCH (08:08)
[2020-04-07] MEDS: FAMOTIDINE 20 MG TABLET PO SCH ×2 (08:08→17:20)
[2020-04-07] MEDS: allopurinoL 100 MG TABLET PO SCH ×2 (08:08→23:57)
[2020-04-07] MEDS: LACTULOSE 20 GM/30 ML UDCUP PO SCH ×3 (08:08→17:20)
[2020-04-07] MEDS: INSULIN GLARGINE 100 UNIT/ML SUBCUT SCH ×2 (08:09→17:20)
[2020-04-07] MEDS: POTASSIUM CHLORIDE 20 MEQ TABLET PO SCH ×3 (11:46→18:30)
[2020-04-07] MEDS ORDERED: BISACODYL 5 MG TABLET PO ONE (15:44)
[2020-04-07] MEDS ORDERED: POLYETHYLENE GLYCOL 3350/ELECTROLYTES 4,000 ML BOTTLE PO ONE (18:00)
[2020-04-07] MEDS: ACETAMINOPHEN/CODEINE 300-30 MG TABLET PO PRN (18:15)
[2020-04-07] MEDS: ONDANSETRON 4 MG/2 ML VIAL IV PRN (20:25)
[2020-04-07] MEDS: DEXTROSE 10% 250 ML BAG IV PRN ×2 (22:34→22:35)
[2020-04-07] MEDS ORDERED: DILTIAZEM 50 MG/10 ML VIAL IV ONE (22:36)
[2020-04-07] MEDS ORDERED: DILTIAZEM 25 MG/5 ML VIAL IV ONE (22:38)
[2020-04-07 23:23] LABS: Hematocrit 35.1 VOL% (35.7-47.0)
[2020-04-07] MEDS: clonazePAM 0.5 MG TABLET PO SCH (23:56)
[2020-04-07] MEDS: ABACAVIR DOLUTEGRAVIR LAMIVUD PO SCH (23:58)
[2020-04-08] MEDS: INSULIN LISPRO 100 UNIT/ML SUBCUT SCH ×4 (01:58→17:46)
[2020-04-08] MEDS: DEXTROSE 10% 250 ML BAG IV PRN (03:52)
[2020-04-08] MEDS: dilTIAZem Drip 125 MG/125 ML PREMIX IV SCH (04:32)
[2020-04-08 05:12] LABS: Calcium 8.4 MG/DL (8.5-10.1); Osmolality,Calculated 274.7 MOS/KG (273-304)
[2020-04-08] MEDS: HYDROmorphone 2 MG/1 ML VIAL IV PRN ×3 (05:30→16:42)
[2020-04-08] MEDS: ACETAMINOPHEN/CODEINE 300-30 MG TABLET PO PRN (05:32)
[2020-04-08 05:52] LABS: Basophils % 0.6 % (0.0-0.8); Eosinophils % 0.3 % (0.00-10.9); Hematocrit 37.3 VOL% (35.7-47.0); Hemoglobin 11.6 GM/DL (12.0-16.0); Immature Granulocytes % 0.6 %; Immature Granulocytes Absolute 0.02 #; Lymphocytes # 0.7 10*3/uL (1.4-4.0); Lymphocytes % 21.5 % (21.3-54.2); Mean Corpuscular HGB Conc 31.1 GM/DL (32-36); Mean Corpuscular Volume 92.6 FL (87-102); Mean Platelet Volume 11.3 FL (9.6-12.0); Monocytes % 11.5 % (1.7-12.7); Neutrophils % 65.5 % (38.7-73.9); Platelet Count 113 T/CUMM (130-400); Red Blood Count 4.03 MC/CUMM (3.8-5.5); Red Cell Distribution Width 17.5 % (9.3-17.3); White Blood Count 3.1 T/CUMM (4-12)
[2020-04-08] MEDS ORDERED: propofoL 200 MG/20 ML VIAL IV ONE (11:10)
[2020-04-08] MEDS ORDERED: ETOMIDATE 20 MG/10 ML VIAL IV ONE (11:10)
[2020-04-08] MEDS ORDERED: LIDOCAINE 2% 5 ML VIAL ONE (11:10)
[2020-04-08] MEDS: LACTULOSE 20 GM/30 ML UDCUP PO SCH ×2 (11:40→17:45)
[2020-04-08] MEDS: INSULIN GLARGINE 100 UNIT/ML SUBCUT SCH ×2 (11:41→17:08)
[2020-04-08] MEDS: FAMOTIDINE 20 MG TABLET PO SCH ×2 (12:20→17:46)
[2020-04-08] MEDS: allopurinoL 100 MG TABLET PO SCH ×2 (12:20→20:48)
[2020-04-08] MEDS: PANTOPRAZOLE 40 MG TABLET PO SCH (12:20)
[2020-04-08] MEDS: clonazePAM 0.5 MG TABLET PO SCH (20:47)
[2020-04-08] MEDS: ABACAVIR DOLUTEGRAVIR LAMIVUD PO SCH (20:48)
[2020-04-08] MEDS: ONDANSETRON 4 MG/2 ML VIAL IV PRN (20:48)
[2020-04-09] MEDS: HYDROmorphone 2 MG/1 ML VIAL IV PRN ×3 (00:03→21:20)
[2020-04-09] MEDS: INSULIN LISPRO 100 UNIT/ML SUBCUT SCH ×4 (00:07→17:59)
[2020-04-09] MEDS: dilTIAZem Drip 125 MG/125 ML PREMIX IV SCH ×2 (00:08→06:22)
[2020-04-09] MEDS: DEXTROSE 10% 250 ML BAG IV PRN (06:58)
[2020-04-09 08:40] LABS: Basophils % 0.9 % (0.0-0.8); Eosinophils % 0.9 % (0.00-10.9); Hematocrit 34.1 VOL% (35.7-47.0); Hemoglobin 10.5 GM/DL (12.0-16.0); Immature Granulocytes % 0.4 %; Immature Granulocytes Absolute 0.01 #; Lymphocytes # 0.7 10*3/uL (1.4-4.0); Lymphocytes % 28.6 % (21.3-54.2); Mean Corpuscular HGB Conc 30.8 GM/DL (32-36); Mean Platelet Volume 10.5 FL (9.6-12.0); Monocytes % 14.1 % (1.7-12.7); Neutrophils % 55.1 % (38.7-73.9); Red Blood Count 3.59 MC/CUMM (3.8-5.5); Red Cell Distribution Width 17.3 % (9.3-17.3); White Blood Count 2.3 T/CUMM (4-12)
[2020-04-09 08:49] LABS: Platelet Count 98 T/CUMM (130-400)
[2020-04-09 08:57] LABS: Hypochromasia 1+; Platelet Estimate Decreased
[2020-04-09 08:58] LABS: Microcytosis Slight
[2020-04-09] MEDS: INSULIN GLARGINE 100 UNIT/ML SUBCUT SCH ×2 (09:18→17:58)
[2020-04-09] MEDS: PANTOPRAZOLE 40 MG TABLET PO SCH (09:21)
[2020-04-09] MEDS: FAMOTIDINE 20 MG TABLET PO SCH ×2 (09:21→16:35)
[2020-04-09] MEDS: allopurinoL 100 MG TABLET PO SCH ×2 (09:21→21:20)
[2020-04-09] MEDS: LACTULOSE 20 GM/30 ML UDCUP PO SCH ×2 (09:22→16:09)
[2020-04-09] MEDS: DICYCLOMINE 10 MG CAPSULE PO SCH ×2 (12:18→21:20)
[2020-04-09] MEDS: ABACAVIR DOLUTEGRAVIR LAMIVUD PO SCH (21:20)
[2020-04-09] MEDS: clonazePAM 0.5 MG TABLET PO SCH (21:20)
[2020-04-10] MEDS: INSULIN LISPRO 100 UNIT/ML SUBCUT SCH ×4 (00:32→17:26)
[2020-04-10] MEDS: dilTIAZem Drip 125 MG/125 ML PREMIX IV SCH (04:54)
[2020-04-10] MEDS: ONDANSETRON 4 MG/2 ML VIAL IV PRN ×3 (09:03→21:08)
[2020-04-10] MEDS: INSULIN GLARGINE 100 UNIT/ML SUBCUT SCH ×2 (09:04→16:21)
[2020-04-10] MEDS: HYDROmorphone 2 MG/1 ML VIAL IV PRN ×4 (09:04→20:59)
[2020-04-10] MEDS: allopurinoL 100 MG TABLET PO SCH ×2 (09:05→21:10)
[2020-04-10] MEDS: FAMOTIDINE 20 MG TABLET PO SCH ×2 (09:05→16:35)
[2020-04-10] MEDS: PANTOPRAZOLE 40 MG TABLET PO SCH (09:05)
[2020-04-10] MEDS: DICYCLOMINE 10 MG CAPSULE PO SCH ×2 (09:05→21:10)
[2020-04-10] MEDS: LACTULOSE 20 GM/30 ML UDCUP PO SCH ×2 (09:06→16:21)
[2020-04-10] MEDS: clonazePAM 0.5 MG TABLET PO SCH (21:10)
[2020-04-10] MEDS: ABACAVIR DOLUTEGRAVIR LAMIVUD PO SCH (23:40)
[2020-04-11] MEDS: HYDROmorphone 2 MG/1 ML VIAL IV PRN ×6 (00:13→21:03)
[2020-04-11] MEDS: INSULIN LISPRO 100 UNIT/ML SUBCUT SCH ×4 (00:59→17:30)
[2020-04-11 06:26] LABS: Basophils % 0.2 % (0.0-0.8); Eosinophils % 0.5 % (0.00-10.9); Hematocrit 32.9 VOL% (35.7-47.0); Hemoglobin 10.2 GM/DL (12.0-16.0); Immature Granulocytes % 0.3 %; Immature Granulocytes Absolute 0.02 #; Lymphocytes # 0.7 10*3/uL (1.4-4.0); Lymphocytes % 10.6 % (21.3-54.2); Mean Platelet Volume 11.4 FL (9.6-12.0); Monocytes % 5.7 % (1.7-12.7); Neutrophils % 82.7 % (38.7-73.9); Red Cell Distribution Width 17.2 % (9.3-17.3); White Blood Count 6.4 T/CUMM (4-12)
[2020-04-11 06:32] LABS: Platelet Count 92 T/CUMM (130-400)
[2020-04-11 06:46] LABS: Calcium 8.4 MG/DL (8.5-10.1); Osmolality,Calculated 268.4 MOS/KG (273-304)
[2020-04-11 06:56] LABS: Anisocytosis 1+; Band Neutrophils 19 % (0-10); Eosinophils 2 % (0-10); Lymphocytes 9 % (20-55); Platelet Estimate Decreased; Segmented Neutrophils 65 % (50-85); Total Cells Counted 100
[2020-04-11 06:57] LABS: Macrocytosis Slight
[2020-04-11] MEDS: ONDANSETRON 4 MG/2 ML VIAL IV PRN ×3 (07:52→17:29)
[2020-04-11] MEDS: FAMOTIDINE 20 MG TABLET PO SCH ×2 (09:15→17:28)
[2020-04-11] MEDS: DICYCLOMINE 10 MG CAPSULE PO SCH ×2 (09:16→21:02)
[2020-04-11] MEDS: INSULIN GLARGINE 100 UNIT/ML SUBCUT SCH ×2 (09:16→16:24)
[2020-04-11] MEDS: PANTOPRAZOLE 40 MG TABLET PO SCH (09:16)
[2020-04-11] MEDS: LACTULOSE 20 GM/30 ML UDCUP PO SCH ×2 (09:16→16:24)
[2020-04-11] MEDS: allopurinoL 100 MG TABLET PO SCH ×2 (09:16→21:02)
[2020-04-11] MEDS: dilTIAZem Drip 125 MG/125 ML PREMIX IV SCH ×3 (10:28→21:34)
[2020-04-11] MEDS: clonazePAM 0.5 MG TABLET PO SCH (21:02)
[2020-04-11] MEDS: ABACAVIR DOLUTEGRAVIR LAMIVUD PO SCH (21:07)
[2020-04-12] MEDS: HYDROmorphone 2 MG/1 ML VIAL IV PRN ×2 (00:05→04:43)
[2020-04-12] MEDS: INSULIN LISPRO 100 UNIT/ML SUBCUT SCH ×3 (00:08→11:54)
[2020-04-12 07:09] LABS: Basophils % 0.7 % (0.0-0.8); Eosinophils % 0.9 % (0.00-10.9); Hematocrit 33.5 VOL% (35.7-47.0); Hemoglobin 10.6 GM/DL (12.0-16.0); Immature Granulocytes % 0.2 %; Immature Granulocytes Absolute 0.01 #; Lymphocytes # 0.7 10*3/uL (1.4-4.0); Lymphocytes % 15.4 % (21.3-54.2); Mean Corpuscular HGB Conc 31.6 GM/DL (32-36); Mean Corpuscular Volume 93.3 FL (87-102); Mean Platelet Volume 10.9 FL (9.6-12.0); Monocytes % 10.7 % (1.7-12.7); Neutrophils % 72.1 % (38.7-73.9); Platelet Count 86 T/CUMM (130-400); Red Blood Count 3.59 MC/CUMM (3.8-5.5); Red Cell Distribution Width 17.9 % (9.3-17.3); White Blood Count 4.4 T/CUMM (4-12)
[2020-04-12 07:23] LABS: Calcium 8.7 MG/DL (8.5-10.1); Osmolality,Calculated 268.2 MOS/KG (273-304)
[2020-04-12] MEDS: FAMOTIDINE 20 MG TABLET PO SCH (09:20)
[2020-04-12] MEDS: PANTOPRAZOLE 40 MG TABLET PO SCH (09:20)
[2020-04-12] MEDS: DICYCLOMINE 10 MG CAPSULE PO SCH (09:21)
[2020-04-12] MEDS: allopurinoL 100 MG TABLET PO SCH (09:21)
[2020-04-12] MEDS: INSULIN GLARGINE 100 UNIT/ML SUBCUT SCH ×2 (09:21→16:16)
[2020-04-12] MEDS: dilTIAZem Drip 125 MG/125 ML PREMIX IV SCH (09:22)
[2020-04-12] MEDS: LACTULOSE 20 GM/30 ML UDCUP PO SCH ×2 (09:22→16:17)
[2020-04-12] MEDS ORDERED: DILTIAZEM CD 120 MG CAPSULE PO SCH (11:11)
[2020-04-12 11:27] LABS: Lymphocytes 11 % (20-55); Macrocytosis 1+; Segmented Neutrophils 84 % (50-85); Smudge Cells Few; Total Cells Counted 100
[2020-04-12 11:28] LABS: Platelet Estimate Decreased
[2020-04-12 11:56] VITALS: BP 103/62
== END 2020-04-12 16:59 | DRG 377 ==
LOC: EDBD → EDUNIT# → N.ED 15:06 → N.EDINP 17:44 → SUATTDRO 17:44 → N.ICU 18:20 → N.TELEN 04-08 15:38
PROVIDERS: ADMIT Internal Medicine; ATTEND Internal Medicine

== ENCOUNTER 2020-05-15 01:09 | Inpatient (IN) ==
[2020-05-15] MEDS ORDERED: ALBUTEROL/IPRATROPIUM 3 ML NEB RESP TX STA (01:39)
[2020-05-15] MEDS ORDERED: SODIUM CHLORIDE 0.9% 500 ML IV STA (01:39)
[2020-05-15] MEDS ORDERED: PANTOPRAZOLE 40 MG VIAL IV STA (01:39)
[2020-05-15] MEDS ORDERED: ONDANSETRON 4 MG/2 ML VIAL IV STA (01:39)
[2020-05-15] MEDS ORDERED: methylPREDNISolone SOD SUC 125 MG/2 ML VIAL IV STA (01:39)
[2020-05-15 01:49] LABS: Hematocrit 28.5 VOL% (35.7-47.0); Hemoglobin 9.1 GM/DL (12.0-16.0); Lymphocytes # 0.6 10*3/uL (1.4-4.0); Lymphocytes % 37.7 % (21.3-54.2); Mean Corpuscular HGB Conc 31.9 GM/DL (32-36); Mean Corpuscular Volume 93.8 FL (87-102); Monocytes % 10.7 % (1.7-12.7); Neutrophils % 51.6 % (38.7-73.9); Platelet Count 56 T/CUMM (130-400); Red Blood Count 3.04 MC/CUMM (3.8-5.5); Red Cell Distribution Width 18.5 % (9.3-17.3); White Blood Count 1.6 T/CUMM (4-12)
[2020-05-15 02:06] LABS: Albumin 2.6 G/DL (3.4-5.0); Bilirubin,Total 0.6 MG/DL (0.2-1.0); Calcium 7.7 MG/DL (8.5-10.1); Ferritin 92.3 ng/ml (8-252); Osmolality,Calculated 262.8 MOS/KG (273-304); Total Protein 7.2 G/DL (6.4-8.3)
[2020-05-15 02:17] LABS: Apearance,Urine CLEAR (Clear); Bacteria,Urine Occasional /HPF (Few); Bilirubin,Urine Negative (Negative); Blood, Urine Negative (Negative); Glucose,Urine (UA) Negative (Negative); Ketones,Urine Negative (Negative); Mucus,Urine Occasional /LPF (Occasional); Nitrite,Urine Negative (Negative); Protein,Urine Negative; RBC,Urine <1 /HPF (0-4); Urine Color Yellow (Yellow); Urine Urobilinogen < 2.0 EU/DL (0.2-1.0); WBC,Urine <1 /HPF (0-6)
[2020-05-15] MEDS ORDERED: MAGNESIUM SULF RIDER 2 GM in PREMIX 1 EACH IV STA (02:24)
[2020-05-15] MEDS ORDERED: FUROSEMIDE 40 MG/4 ML VIAL IV STA (02:47)
[2020-05-15] MEDS ORDERED: DEXTROSE 50% 25 GM/50 ML VIAL IV PRN (03:59)
[2020-05-15] MEDS ORDERED: hydrALAZINE 20 MG/1 ML VIAL IV PRN (03:59)
[2020-05-15] MEDS ORDERED: GLUCAGON 1 MG VIAL IM PRN (03:59)
[2020-05-15] MEDS ORDERED: MAGNESIUM SULF RIDER 4 GM in PREMIX 1 EACH IV PRN (03:59)
[2020-05-15] MEDS ORDERED: ONDANSETRON 4 MG/2 ML VIAL IV PRN (03:59)
[2020-05-15] MEDS ORDERED: MAGNESIUM SULF RIDER 2 GM in PREMIX 1 EACH IV PRN (03:59)
[2020-05-15] MEDS ORDERED: NICOTINE 21 MG/24 HR PATCH TRANSDERM PRN (03:59)
[2020-05-15 04:03] LABS: Band Neutrophils 2 % (0-10); Lymphocytes 38 % (20-55); Segmented Neutrophils 48 % (50-85); Total Cells Counted 100
[2020-05-15 04:04] LABS: Anisocytosis 1+; Hypochromasia 1+
[2020-05-15 04:05] LABS: Ovalocytes Few; Platelet Estimate Decreased
[2020-05-15] MEDS: metroNIDAZOLE INJ 500 MG in PREMIX 1 EACH IV SCH ×2 (04:46→11:54)
[2020-05-15] MEDS ORDERED: CEFEPIME 2,000 MG in SODIUM CHLORIDE 0.9% 100 ML IV SCH (05:00)
[2020-05-15] MEDS: INSULIN REGULAR 100 UNIT/ML SUBCUT SCH ×3 (06:15→17:23)
[2020-05-15] MEDS ORDERED: ALBUTEROL INHALER 18 GM INH PRN (07:51)
[2020-05-15] MEDS: PANTOPRAZOLE 40 MG VIAL IV SCH ×2 (09:15→21:42)
[2020-05-15] MEDS: CEFEPIME 1,000 MG in SODIUM CHLORIDE 0.9% 100 ML IV SCH ×3 (09:15→21:50)
[2020-05-15] MEDS: DILTIAZEM CD 120 MG CAPSULE PO SCH (09:16)
[2020-05-15] MEDS: NEBIVOLOL 10 MG TABLET PO SCH (09:16)
[2020-05-15] MEDS: MONTELUKAST 10 MG TABLET PO SCH (09:16)
[2020-05-15] MEDS: DICYCLOMINE 10 MG CAPSULE PO SCH ×2 (09:17→21:42)
[2020-05-15] MEDS ORDERED: clonazePAM 0.5 MG TABLET PO SCH (21:00)
[2020-05-15] MEDS: GABAPENTIN 300 MG CAPSULE PO SCH (21:42)
[2020-05-15] MEDS: methylPREDNISolone SOD SUC 40 MG/1 ML VIAL IV SCH (21:46)
[2020-05-15] MEDS: TRIUMEG PO SCH (21:51)
[2020-05-16] MEDS: ACETAMINOPHEN 325 MG TABLET PO PRN ×2 (00:43→10:03)
[2020-05-16] MEDS: INSULIN REGULAR 100 UNIT/ML SUBCUT SCH ×4 (00:53→17:43)
[2020-05-16] MEDS: CEFEPIME 1,000 MG in SODIUM CHLORIDE 0.9% 100 ML IV SCH ×4 (03:40→22:17)
[2020-05-16 05:08] LABS: Hematocrit 30.4 VOL% (35.7-47.0); Hemoglobin 9.7 GM/DL (12.0-16.0); Immature Granulocytes % 0.4 %; Immature Granulocytes Absolute 0.01 #; Lymphocytes # 0.2 10*3/uL (1.4-4.0); Lymphocytes % 7.9 % (21.3-54.2); Mean Corpuscular HGB Conc 31.9 GM/DL (32-36); Mean Corpuscular Volume 93.5 FL (87-102); Monocytes % 4.6 % (1.7-12.7); Neutrophils % 87.1 % (38.7-73.9); Platelet Count 49 T/CUMM (130-400); Red Blood Count 3.25 MC/CUMM (3.8-5.5); White Blood Count 2.4 T/CUMM (4-12)
[2020-05-16 05:26] LABS: Albumin 2.5 G/DL (3.4-5.0); Bilirubin,Total 0.5 MG/DL (0.2-1.0); Calcium 7.7 MG/DL (8.5-10.1); Total Protein 7.2 G/DL (6.4-8.3)
[2020-05-16 05:36] LABS: Hypochromasia 1+; Microcytosis Slight; Ovalocytes Slight; Platelet Estimate Decreased
[2020-05-16] MEDS: methylPREDNISolone SOD SUC 40 MG/1 ML VIAL IV SCH ×2 (09:47→22:14)
[2020-05-16] MEDS: PANTOPRAZOLE 40 MG VIAL IV SCH ×2 (09:47→22:10)
[2020-05-16] MEDS: DILTIAZEM CD 120 MG CAPSULE PO SCH (09:48)
[2020-05-16] MEDS: DICYCLOMINE 10 MG CAPSULE PO SCH ×2 (09:48→22:15)
[2020-05-16] MEDS: NEBIVOLOL 10 MG TABLET PO SCH (09:48)
[2020-05-16] MEDS: MONTELUKAST 10 MG TABLET PO SCH (09:48)
[2020-05-16] MEDS: POTASSIUM CHLORIDE 20 MEQ TABLET PO PRN ×4 (09:48→17:43)
[2020-05-16] MEDS ORDERED: SODIUM CHLORIDE 0.9% 1,000 ML IV PRN ×2 (10:24→12:37)
[2020-05-16] MEDS ORDERED: DICLOFENAC 1% GEL 100 GM TUBE TOP PRN (12:53)
[2020-05-16] MEDS: ACETAMINOPHEN/CODEINE 300-30 MG TABLET PO PRN ×2 (13:13→22:15)
[2020-05-16 13:40] LABS: Hemoglobin 9.5 GM/DL (12.0-16.0)
[2020-05-16 13:57] LABS: INR 1.2; PT Patient Result 12.6 SECS (9.8-11.9)
[2020-05-16] MEDS: SULFAMETHOX/TRIMETHOPRIM 800-160 MG TABLET PO SCH (16:22)
[2020-05-16 20:45] LABS: Hematocrit 30.5 VOL% (35.7-47.0); Hemoglobin 9.5 GM/DL (12.0-16.0)
[2020-05-16] MEDS: TRIUMEG PO SCH (22:10)
[2020-05-16] MEDS: GABAPENTIN 300 MG CAPSULE PO SCH (22:15)
[2020-05-17] MEDS: INSULIN REGULAR 100 UNIT/ML SUBCUT SCH ×5 (01:59→18:07)
[2020-05-17] MEDS: CEFEPIME 1,000 MG in SODIUM CHLORIDE 0.9% 100 ML IV SCH ×2 (03:53→08:37)
[2020-05-17] MEDS: ACETAMINOPHEN/CODEINE 300-30 MG TABLET PO PRN ×2 (06:45→13:45)
[2020-05-17] MEDS: DICYCLOMINE 10 MG CAPSULE PO SCH (08:37)
[2020-05-17] MEDS: PANTOPRAZOLE 40 MG VIAL IV SCH (08:37)
[2020-05-17] MEDS: DILTIAZEM CD 120 MG CAPSULE PO SCH (08:37)
[2020-05-17] MEDS: SULFAMETHOX/TRIMETHOPRIM 800-160 MG TABLET PO SCH (08:37)
[2020-05-17] MEDS: NEBIVOLOL 10 MG TABLET PO SCH (08:37)
[2020-05-17] MEDS: methylPREDNISolone SOD SUC 40 MG/1 ML VIAL IV SCH (08:38)
[2020-05-17] MEDS: MONTELUKAST 10 MG TABLET PO SCH (08:38)
[2020-05-17 09:41] LABS: Hematocrit 29.3 VOL% (35.7-47.0); Hematocrit 29.5 VOL% (35.7-47.0); Hemoglobin 9.1 GM/DL (12.0-16.0); Immature Granulocytes % 0.7 %; Immature Granulocytes Absolute 0.03 #; Lymphocytes # 0.3 10*3/uL (1.4-4.0); Lymphocytes % 6.8 % (21.3-54.2); Mean Corpuscular HGB Conc 30.8 GM/DL (32-36); Mean Corpuscular Volume 97.4 FL (87-102); Monocytes % 3.2 % (1.7-12.7); Neutrophils % 89.3 % (38.7-73.9); Red Blood Count 3.03 MC/CUMM (3.8-5.5); Red Cell Distribution Width 18.5 % (9.3-17.3); White Blood Count 4.4 T/CUMM (4-12)
[2020-05-17 09:42] LABS: Platelet Count 56 T/CUMM (130-400)
[2020-05-17 09:59] LABS: Hypochromasia 1+; Microcytosis 1+; Ovalocytes Slight; Platelet Estimate Decreased
[2020-05-17 10:05] LABS: Calcium 7.9 MG/DL (8.5-10.1); Osmolality,Calculated 286.1 MOS/KG (273-304)
[2020-05-17 11:32] LABS: INR 1.1; PT Patient Result 12.2 SECS (9.8-11.9)
[2020-05-17 13:42] LABS: Hematocrit 30.7 VOL% (35.7-47.0); Hemoglobin 9.3 GM/DL (12.0-16.0)
[2020-05-17 21:31] VITALS: BP 119/96
[2020-05-18] MEDS ORDERED: PANTOPRAZOLE 40 MG TABLET PO SCH (09:00)
== END 2020-05-17 19:55 | DRG 813 ==
LOC: EDUNIT# → EDBD → N.ED 01:09 → SUATTDRO 03:59 → N.EDINP 03:59 → N.2E 05:04
PROVIDERS: ADMIT Internal Medicine; ATTEND Internal Medicine